=== PATIENT | female | born 1985 | race African-American/Black ===

== ENCOUNTER 2022-03-31 21:13 | Emergency (ER) | payer OTHER ==
[~2022-03-31] VITALS: Ht 165.1 cm; Wt 50.0 kg
[2022-03-31 21:55] VITALS: BP 139/82
[2022-03-31] MEDS ORDERED: IBUPROFEN 400MG TABLET PO ONE (22:00)
[2022-03-31] MEDS ORDERED: ACETAMINOPHEN 325MG TABLET PO ONE (22:00)
[2022-03-31] MEDS ORDERED: IBUP-2028 MT (22:21)
[2022-03-31] MEDS ORDERED: TOPUD PO (22:21)
== END 2022-03-31 23:12 | disposition home or self-care (01) ==
LOC: ER 21:13
DX: S93.491A Sprain of other ligament of right ankle, initial encounter (principal); W10.8XXA Fall (on) (from) other stairs and steps, initial encounter; Y93.01 Activity, walking, marching and hiking; Y92.89 Other specified places as the place of occurrence of the external cause
CPT/HCPCS: 73610; 73630; 99284; Z7610

== ENCOUNTER 2024-08-30 20:24 | Emergency (ER) | payer MEDICAID, OTHER ==
[~2024-08-30] VITALS: Ht 154.9 cm; Wt 55.0 kg
[2024-08-30 20:24] VITALS: BP 149/86; PULSE 76; RESP 18; TEMP 36.9; O2SAT 99
[~2024-08-30 20:24] MED LIST: IBUP-2028 MT; TOPUD PO
== END 2024-08-30 22:34 | disposition left against medical advice (07) ==
LOC: ER 20:24
DX: R06.02 Shortness of breath (principal); Z53.21 Procedure and treatment not carried out due to patient leaving prior to being seen by health care provider

== ENCOUNTER 2025-06-02 22:53 | Inpatient (IN) | payer MEDICAID, OTHER ==
[~2025-06-02] VITALS: Ht 147.3 cm; Wt 41.3 kg
[2025-06-02 22:56] VITALS: O2SAT 100
[2025-06-02 23:45] LABS: BASOPHILS % 1.3 % (0.0-2.0); EOSINOPHILS % 2.8 % (0.0-5.0); HEMATOCRIT. 31.1 % (36.0-48.0); HEMOGLOBIN. 10.4 g/dL (12.0-16.0); LYMPHOCYTES % 29.3 % (20.0-50.0); MEAN PLATELET VOLUME 8.4 fl (7.4-10.4); MONOCYTES % 10.7 % (2.0-8.0); NEUTROPHILS % 55.9 % (40.0-76.0); PLATELET 269 x1000/uL (130-400); RED BLOOD CELL COUNT 3.63 mill/uL (4.2-5.4); RED CELL DISTRIBUTION WIDTH 16.2 % (11.6-14.6)
[2025-06-02 23:58] LABS: CREATININE 0.7 mg/dL (0.6-1.0); INR 1.0; TROPONIN I HIGH SENSITIVITY < 4 ng/L (3.0-34); UREA NITROGEN BLOOD 19 mg/dL (9-23)
[2025-06-02 23:59] LABS: ASPARTATE AMINOTRANSFERASE 12 IU/L (<34)
[2025-06-03] LABS: BILIRUBIN DIRECT < 0.1 mg/dL (<=3.0); BILIRUBIN TOTAL 0.4 mg/dL (0.1-1.0); HCG SCREEN NEGATIVE; PROTEIN TOTAL 6.6 g/dL (6.0-8.3)
[2025-06-03] MEDS: KETOROLAC 15MG/ML VIAL IV ONE (00:09)
[2025-06-03] MEDS: METOCLOPRAMIDE HCL 10MG/2ML VIAL IV ONE (00:09)
[2025-06-03 02:01] LABS: TROPONIN I HIGH SENSITIVITY < 4 ng/L (3.0-34)
[2025-06-03 04:10] VITALS: BP 106/64; PULSE 53; RESP 18; TEMP 36.2; O2SAT 100
[2025-06-03 04:46] VITALS: BP 106/64; PULSE 53; RESP 18; TEMP 36.2512
[2025-06-03] MEDS ORDERED: AMLO5TAB88 PO (05:16)
[2025-06-03] MEDS ORDERED: ASPI-1406 PO (05:16)
[2025-06-03] MEDS ORDERED: LEVE500T19 PO (05:16)
[2025-06-03] MEDS ORDERED: ATOR10TA69 PO (05:16)
[2025-06-03] MEDS ORDERED: ACETAMINOPHEN 325MG TABLET PO PRN (05:30)
[2025-06-03] MEDS ORDERED: HYDROCODONE/ACETAMINOPHEN 5/325MG TABLET PO PRN (05:30)
[2025-06-03] MEDS ORDERED: MELATONIN 3MG TABLET PO PRN (05:30)
[2025-06-03] MEDS: ONDANSETRON HCL 4MG/2ML INJ IV PRN (06:57)
[2025-06-03] MEDS: ASPIRIN 81MG TABLET PO SCH (09:16)
[2025-06-03] MEDS: LEVETIRACETAM 500MG TABLET PO SCH (09:16)
[2025-06-03] MEDS: ENOXAPARIN 30MG/0.3ML SYR SUBCUT SCH (09:17)
[2025-06-03] MEDS ORDERED: AMLO5TAB88 MT (09:23)
[2025-06-03 11:23] LABS: BASOPHILS % 1.2 % (0.0-2.0); EOSINOPHILS % 2.5 % (0.0-5.0); HEMATOCRIT. 30.9 % (36.0-48.0); HEMOGLOBIN. 10.2 g/dL (12.0-16.0); LYMPHOCYTES % 26.3 % (20.0-50.0); MEAN PLATELET VOLUME 8.7 fl (7.4-10.4); MONOCYTES % 10.0 % (2.0-8.0); NEUTROPHILS % 60.0 % (40.0-76.0); PLATELET 251 x1000/uL (130-400); RED BLOOD CELL COUNT 3.57 mill/uL (4.2-5.4); RED CELL DISTRIBUTION WIDTH 16.2 % (11.6-14.6)
[2025-06-03 11:40] LABS: TRIGLYCERIDE 32.0 mg/dL (0-150)
[2025-06-03 11:41] LABS: LDL CHOLESTEROL 73.0 mg/dL (5-100)
[2025-06-03 12:00] VITALS: BP 112/67; PULSE 60; RESP 18; TEMP 36.7; O2SAT 100
== END 2025-06-03 16:25 | disposition left against medical advice (07) | DRG 48 ==
LOC: ER 22:53 → 8WST 06-03 00:57 → EDBEDREQTM 06-03 02:59 → EDBEDREQ 06-03 02:59 → EDBEDREQDT 06-03 02:59 → ENRESERV 06-03 03:59
PROVIDERS: ADMIT Internal Medicine; ATTEND Internal Medicine
DX: G90.89 Other disorders of autonomic nervous system (principal); I11.0 Hypertensive heart disease with heart failure; I50.9 Heart failure, unspecified; G40.909 Epilepsy, unspecified, not intractable, without status epilepticus; I69.30 Unspecified sequelae of cerebral infarction; J45.909 Unspecified asthma, uncomplicated; R07.9 Chest pain, unspecified; Z53.29 Procedure and treatment not carried out because of patient's decision for other reasons; R51.9 Headache, unspecified; R94.31 Abnormal electrocardiogram [ECG] [EKG]; Z88.1 Allergy status to other antibiotic agents
CPT/HCPCS: 36415; 71045; 80048; 80061; 80076; 83880; 84484; 84703; 85025; 85379; 93005; 96374; 96375; 99285; J1650; J1885; J2405; J2765